=== PATIENT | male | born 1935 | race Caucasian/White ===

== ENCOUNTER 2018-12-15 08:42 | Observation (INO) ==
[2018-12-15] MEDS ORDERED: KETOROLAC 30 MG/1 ML VIAL IV STA (09:10)
[2018-12-15] MEDS ORDERED: SODIUM CHLORIDE 0.9% 500 ML IV STA (09:10)
[2018-12-15 09:56] LABS: Basophils % 0.3 % (0.0-0.8); Eosinophils # 0.4 10*3/uL (0.0-0.87); Eosinophils % 4.5 % (0.00-10.9); Hematocrit 41.5 VOL% (42.0-52.0); Hemoglobin 13.1 GM/DL (14.0-18.0); Immature Granulocytes % 0.5 %; Immature Granulocytes Absolute 0.04 #; Lymphocytes # 1.4 10*3/uL (1.4-4.0); Lymphocytes % 15.8 % (21.2-54.2); Mean Corpuscular HGB Conc 31.6 GM/DL (32-36); Mean Corpuscular Volume 89.6 FL (87-102); Mean Platelet Volume 11.1 FL (9.6-12.0); Monocytes % 8.4 % (1.7-12.7); Neutrophils % 70.5 % (38.7-73.9); Platelet Count 177 T/CUMM (130-400); Red Blood Count 4.63 MC/CUMM (3.8-5.5); Red Cell Distribution Width 14.5 % (9.3-17.3); White Blood Count 8.6 T/CUMM (4-12)
[2018-12-15 10:12] LABS: Apearance,Urine CLEAR (Clear); Bilirubin,Urine Negative (Negative); Blood, Urine Large mg/dL (Negative); Glucose,Urine (UA) Negative (Negative); Ketones,Urine 5 mg/dL (Negative); Mucus,Urine Occasional /LPF (Occasional); Nitrite,Urine Positive (Negative); Protein,Urine 100 MG/DL; RBC,Urine 1143 /HPF (0-4); Urine Color Amber (Yellow); Urine Specific Gravity 1.014 (1.001-1.035)
[2018-12-15 10:23] LABS: Calcium 8.9 MG/DL (8.5-10.1); Osmolality,Calculated 288.7 MOS/KG (273-304)
[2018-12-15] MEDS ORDERED: cefTRIAXone 1,000 MG in SODIUM CHLORIDE 0.9% 100 ML IV STA (11:57)
[2018-12-15] MEDS ORDERED: LACTULOSE 20 GM/30 ML UDCUP PO PRN (13:52)
[2018-12-15] MEDS ORDERED: ACETAMINOPHEN 325 MG TABLET PO PRN (13:52)
[2018-12-15] MEDS ORDERED: DOCUSATE SODIUM 100 MG CAPSULE PO PRN (13:52)
[2018-12-15] MEDS ORDERED: PHENAZOPYRIDINE 95 MG TABLET PO PRN (13:55)
[2018-12-15] MEDS: FLUDROCORTISONE 0.1 MG TABLET PO SCH (14:25)
[2018-12-15] MEDS: VALSARTAN 160 MG TABLET PO SCH (14:26)
[2018-12-15] MEDS: ENOXAPARIN 30 MG/0.3 ML SYRINGE SUBCUT SCH (14:26)
[2018-12-15] MEDS: SODIUM CHLORIDE 0.9% 1,000 ML IV SCH ×2 (14:27→22:30)
[2018-12-15] MEDS: ZIPRASIDONE 20 MG CAPSULE PO SCH (21:32)
[2018-12-15] MEDS: ATORVASTATIN 10 MG TABLET PO SCH (21:32)
[2018-12-15] MEDS: PREGABALIN 25 MG CAPSULE PO SCH (21:32)
[2018-12-16 05:14] LABS: Basophils % 0.3 % (0.0-0.8); Eosinophils # 0.5 10*3/uL (0.0-0.87); Eosinophils % 6.6 % (0.00-10.9); Hematocrit 36.9 VOL% (42.0-52.0); Immature Granulocytes % 0.4 %; Immature Granulocytes Absolute 0.03 #; Lymphocytes # 1.5 10*3/uL (1.4-4.0); Lymphocytes % 20.6 % (21.2-54.2); Mean Corpuscular HGB Conc 32.5 GM/DL (32-36); Mean Corpuscular Volume 88.7 FL (87-102); Mean Platelet Volume 11.5 FL (9.6-12.0); Monocytes % 9.7 % (1.7-12.7); Neutrophils % 62.4 % (38.7-73.9); Platelet Count 159 T/CUMM (130-400); Red Blood Count 4.16 MC/CUMM (3.8-5.5); Red Cell Distribution Width 14.4 % (9.3-17.3); White Blood Count 7.3 T/CUMM (4-12)
[2018-12-16 05:57] LABS: Calcium 8.1 MG/DL (8.5-10.1); Osmolality,Calculated 286.8 MOS/KG (273-304); Thyroid Stimulating Hormone 0.81 uIU/ml (0.358-3.74)
[2018-12-16] MEDS ORDERED: POTASSIUM CHLORIDE 20 MEQ TABLET PO ONE (06:47)
[2018-12-16] MEDS ORDERED: MAGNESIUM SULF RIDER 2 GM in PREMIX 1 EACH IV PRN (06:47)
[2018-12-16] MEDS ORDERED: MAGNESIUM SULF RIDER 4 GM in PREMIX 1 EACH IV PRN (06:47)
[2018-12-16] MEDS: SODIUM CHLORIDE 0.9% 1,000 ML IV SCH (07:03)
[2018-12-16] MEDS: ONDANSETRON 4 MG/2 ML VIAL IV PRN (07:21)
[2018-12-16] MEDS: FLUDROCORTISONE 0.1 MG TABLET PO SCH (08:43)
[2018-12-16] MEDS: PREGABALIN 25 MG CAPSULE PO SCH ×2 (08:43→21:35)
[2018-12-16] MEDS: VALSARTAN 160 MG TABLET PO SCH (08:43)
[2018-12-16] MEDS: ZIPRASIDONE 20 MG CAPSULE PO SCH ×2 (08:43→21:35)
[2018-12-16] MEDS: PANTOPRAZOLE 40 MG TABLET PO SCH (08:43)
[2018-12-16] MEDS: cefTRIAXone 1,000 MG in SYRINGE 1 EACH IV SCH (08:45)
[2018-12-16] MEDS: ENOXAPARIN 30 MG/0.3 ML SYRINGE SUBCUT SCH (14:14)
[2018-12-16] MEDS: ATORVASTATIN 10 MG TABLET PO SCH (21:35)
[2018-12-17 06:00] LABS: Basophils % 0.4 % (0.0-0.8); Eosinophils # 0.5 10*3/uL (0.0-0.87); Eosinophils % 6.8 % (0.00-10.9); Hematocrit 38.3 VOL% (42.0-52.0); Hemoglobin 12.2 GM/DL (14.0-18.0); Immature Granulocytes % 0.5 %; Immature Granulocytes Absolute 0.04 #; Lymphocytes # 1.7 10*3/uL (1.4-4.0); Lymphocytes % 23.1 % (21.2-54.2); Mean Corpuscular HGB Conc 31.9 GM/DL (32-36); Mean Corpuscular Volume 90.1 FL (87-102); Mean Platelet Volume 11.4 FL (9.6-12.0); Monocytes % 9.7 % (1.7-12.7); Neutrophils % 59.5 % (38.7-73.9); Platelet Count 172 T/CUMM (130-400); Red Blood Count 4.25 MC/CUMM (3.8-5.5); Red Cell Distribution Width 14.6 % (9.3-17.3); White Blood Count 7.4 T/CUMM (4-12)
[2018-12-17 06:27] LABS: Calcium 8.6 MG/DL (8.5-10.1); Osmolality,Calculated 291.6 MOS/KG (273-304)
[2018-12-17] MEDS: cefTRIAXone 1,000 MG in SYRINGE 1 EACH IV SCH (08:58)
[2018-12-17] MEDS: ZIPRASIDONE 20 MG CAPSULE PO SCH ×2 (08:59→22:29)
[2018-12-17] MEDS: PREGABALIN 25 MG CAPSULE PO SCH ×2 (08:59→22:29)
[2018-12-17] MEDS: FLUDROCORTISONE 0.1 MG TABLET PO SCH (08:59)
[2018-12-17] MEDS: VALSARTAN 160 MG TABLET PO SCH (08:59)
[2018-12-17] MEDS: PANTOPRAZOLE 40 MG TABLET PO SCH (09:00)
[2018-12-17] MEDS: ENOXAPARIN 30 MG/0.3 ML SYRINGE SUBCUT SCH (14:57)
[2018-12-17] MEDS ORDERED: POTASSIUM CHLORIDE 20 MEQ TABLET PO ONE (16:29)
[2018-12-18] MEDS ORDERED: HYDROmorphone 2 MG/1 ML VIAL IV PRN (04:20)
[2018-12-18] MEDS: ONDANSETRON 4 MG/2 ML VIAL IV PRN (04:30)
[2018-12-18 05:57] LABS: Basophils % 0.3 % (0.0-0.8); Eosinophils # 0.5 10*3/uL (0.0-0.87); Eosinophils % 6.2 % (0.00-10.9); Hematocrit 39.6 VOL% (42.0-52.0); Hemoglobin 12.3 GM/DL (14.0-18.0); Immature Granulocytes % 0.4 %; Immature Granulocytes Absolute 0.03 #; Lymphocytes # 1.8 10*3/uL (1.4-4.0); Lymphocytes % 23.2 % (21.2-54.2); Mean Corpuscular HGB Conc 31.1 GM/DL (32-36); Mean Corpuscular Volume 91.2 FL (87-102); Mean Platelet Volume 11.4 FL (9.6-12.0); Monocytes % 10.3 % (1.7-12.7); Neutrophils % 59.6 % (38.7-73.9); Platelet Count 171 T/CUMM (130-400); Red Blood Count 4.34 MC/CUMM (3.8-5.5); Red Cell Distribution Width 14.6 % (9.3-17.3); White Blood Count 7.9 T/CUMM (4-12)
[2018-12-18 06:31] LABS: Calcium 8.5 MG/DL (8.5-10.1); Osmolality,Calculated 289.7 MOS/KG (273-304)
[2018-12-18 07:43] VITALS: BP 171/79
[2018-12-18] MEDS: FLUDROCORTISONE 0.1 MG TABLET PO SCH (09:23)
[2018-12-18] MEDS: VALSARTAN 160 MG TABLET PO SCH (09:23)
[2018-12-18] MEDS: PANTOPRAZOLE 40 MG TABLET PO SCH (09:23)
[2018-12-18] MEDS: ZIPRASIDONE 20 MG CAPSULE PO SCH (09:23)
[2018-12-18] MEDS: PREGABALIN 25 MG CAPSULE PO SCH (09:23)
[2018-12-18] MEDS: cefTRIAXone 1,000 MG in SYRINGE 1 EACH IV SCH (09:24)
== END 2018-12-18 11:49 | disposition home or self-care (01) ==
LOC: N.ED 08:42 → N.EDINP 12:07 → INTOOBSV 12:07 → N.EDINP 12:48 → N.5E 13:08
PROVIDERS: ADMIT Hospitalist; ATTEND Hospitalist